=== PATIENT | male | born 1955 | race Caucasian/White ===

== ENCOUNTER 2018-04-25 15:37 | Emergency (ER) | payer OTHER ==
[~2018-04-25] VITALS: Ht 177.8 cm; Wt 85.0 kg
[2018-04-25 15:38] VITALS: BP 133/80; PULSE 90; TEMP 98.3
[2018-04-25] MEDS ORDERED: JANUVIA50 MG (15:47)
[2018-04-25] MEDS ORDERED: GLUCOPHAGE1000 MG PO (15:48)
[2018-04-25] MEDS ORDERED: PRAVACHOL 20MG20 MG PO (15:49)
[2018-04-25] MEDS ORDERED: NORVASC 5MG5 MG/TAB PO (15:49)
[2018-04-25] MEDS ORDERED: PRIL40 PO (15:49)
[2018-04-25] MEDS ORDERED: LOFIBRA160 MG PO (15:50)
[2018-04-25] MEDS ORDERED: LYRICA 75MG CAP75 MG PO (15:50)
[2018-04-25] MEDS ORDERED: ACCUPRIL20TAB PO (15:50)
[2018-04-25] MEDS ORDERED: FLOMAX 0.40.4 MG/CAP PO (15:50)
[2018-04-25] MEDS ORDERED: COMBIGAN 0.2%-0.5 ML OS (15:51)
[2018-04-25] MEDS ORDERED: TRAVATAN Z 5 ML5 ML OD (15:51)
[2018-04-25] MEDS ORDERED: JANUVIA 100MG100 MG PO (15:51)
[2018-04-25] MEDS ORDERED: VITAMIN D31000 I1 PO (15:52)
== END 2018-04-25 17:50 | disposition home or self-care (01) ==
LOC: COL.ER 15:37
DX: S62.633A Displaced fracture of distal phalanx of left middle finger, initial encounter for closed fracture (principal); S61.213A Laceration without foreign body of left middle finger without damage to nail, initial encounter; S61.211A Laceration without foreign body of left index finger without damage to nail, initial encounter; I10 Essential (primary) hypertension; E11.9 Type 2 diabetes mellitus without complications; E78.00 Pure hypercholesterolemia, unspecified; Z79.84 Long term (current) use of oral hypoglycemic drugs; W26.8XXA Contact with other sharp object(s), not elsewhere classified, initial encounter; Y92.009 Unspecified place in unspecified non-institutional (private) residence as the place of occurrence of the external cause

== ENCOUNTER 2021-09-01 14:49 | Emergency (ER) | payer MEDICARE, OTHER ==
[~2021-09-01] VITALS: Ht 175.3 cm; Wt 95.5 kg
[~2021-09-01 14:49] MED LIST: ACCUPRIL20TAB PO; COMBIGAN 0.2%-0.5 ML OS; FLOMAX 0.40.4 MG/CAP PO; GLUCOPHAGE1000 MG PO; JANUVIA 100MG100 MG PO; JANUVIA50 MG; LOFIBRA160 MG PO; LYRICA 75MG CAP75 MG PO; NORVASC 5MG5 MG/TAB PO; PRAVACHOL 20MG20 MG PO; PRIL40 PO; TRAVATAN Z 5 ML5 ML OD; VITAMIN D31000 I1 PO
[2021-09-01 15:04] VITALS: BP 122/78; TEMP 98.2
[2021-09-01 16:24] VITALS: PULSE 67
== END 2021-09-01 16:24 | disposition home or self-care (01) ==
LOC: COL.ER 14:49
DX: S09.90XA Unspecified injury of head, initial encounter (principal); S00.91XA Abrasion of unspecified part of head, initial encounter; Z87.891 Personal history of nicotine dependence; Z28.310 Unvaccinated for COVID-19; Z79.82 Long term (current) use of aspirin; W20.8XXA Other cause of strike by thrown, projected or falling object, initial encounter

== ENCOUNTER 2021-11-08 14:05 | Emergency (ER) | payer MEDICARE, OTHER ==
[~2021-11-08] VITALS: Ht 182.9 cm; Wt 95.5 kg
[2021-11-08 14:10] VITALS: TEMP 97.7
[2021-11-08 14:26] LABS: COLLECTION METHOD CLEAN CATCH
[2021-11-08 14:33] LABS: PH 6 (5-8); SQUAMOUS EPITHELIAL None Seen /hpf (0-10); URINE APPEARANCE Clear (CLEAR/HAZY); URINE BACTERIA None Seen /hpf (NONE SEEN); URINE BLOOD Negative (NEGATIVE); URINE COLOR Yellow (YELLOW); URINE GLUCOSE Negative (NEGATIVE); URINE KETONE Negative (NEGATIVE); URINE NITRATE Negative (NEGATIVE); URINE PROTEIN(semi-quant) Negative (NEGATIVE); URINE RBC None Seen /hpf (0-2); URINE UROBILINOGEN Negative (NEGATIVE)
[2021-11-08 14:37] LABS: BASO # 0.1 K/mm3 (0.0-0.2); BASO % 0.4 % (0.0-2.0); EOS # 0.2 K/mm3 (0.0-0.7); EOS % 1.3 % (0.0-4.0); GRAN # 8.2 K/mm3 (1.4-6.5); HEMATOCRIT 39.3 % (42.0-52.0); HEMOGLOBIN 13.5 g/dl (13.5-18.0); LYMPH # 2.5 K/mm3 (1.2-3.4); LYMPH % 21.4 % (20.0-51.0); MEAN CELL VOLUME 87 fl (80.0-100.0); MEAN CORPUSCULAR HEMOGLOBIN 30 pg (27-31); MEAN CORPUSCULAR HGB CONC 34 g/dl (33.0-37.0); MEAN PLATELET VOLUME 9.2 fl (7.4-10.4); MONO # 0.9 K/mm3 (0.1-0.6); MONO % 7.6 % (1.7-9.3); PLATELET COUNT 193 K/mm3 (130-400); RED BLOOD COUNT 4.54 M/mm3 (4.20-5.60); REDCELL DISTRIBUTION WIDTH-CV 12.6 % (11.5-14.5)
[2021-11-08 15:16] LABS: ALBUMIN 4.2 gm/dL (3.4-4.8); BILIRUBIN,TOTAL 0.7 mg/dL (0.2-1.2); CALCIUM 9.4 mg/dL (8.4-10.2); CREATININE, serum 0.94 mg/dL (0.72-1.25); POTASSIUM 3.7 mmol/L (3.5-4.5); TOTAL PROTEIN 7.2 gm/dL (6.2-8.1)
[2021-11-08] MEDS ORDERED: FLEXERIL 1010 MG/TAB PO (16:16)
[2021-11-08 16:45] VITALS: BP 139/84; PULSE 72
== END 2021-11-08 16:45 | disposition home or self-care (01) ==
LOC: COL.ER 14:05
PROVIDERS: Physician Assistant
DX: M54.50 Low back pain, unspecified (principal); R10.9 Unspecified abdominal pain; Z87.891 Personal history of nicotine dependence; Z28.310 Unvaccinated for COVID-19
CPT/HCPCS: J2270; Q9967